=== PATIENT | male | born 1985 | race Caucasian/White ===

== ENCOUNTER 2020-10-13 01:11 | Emergency (ER) | payer OTHER ==
[~2020-10-13] VITALS: Ht 190.5 cm; Wt 127.3 kg
[2020-10-13 01:21] VITALS: BP 134/89; Ht 190.5 cm; Wt 127.3 kg
[2020-10-13] MEDS ORDERED: HYDROCODON-ACE1 EAC7 PO (03:57)
== END 2020-10-13 04:45 | disposition home or self-care (01) ==
LOC: EDSEX 01:11 → D.ER 01:11
DX: S51.811A Laceration without foreign body of right forearm, initial encounter (principal); W26.0XXA Contact with knife, initial encounter; Y93.9 Activity, unspecified; Y92.9 Unspecified place or not applicable